=== PATIENT | male | born 2000 | race Caucasian/White ===

== ENCOUNTER 2021-06-19 01:03 | Emergency (ER) | payer OTHER, SELFPAY ==
[2021-06-19 01:07] VITALS: PULSE 111; RESP 18; TEMP 36; O2SAT 100
[2021-06-19 04:34] VITALS: BP 126/76; PULSE 95; RESP 18; O2SAT 98
--- NOTE | 2021-06-19 04:47 | ED.SKABFB ---
HPI - Skin/Abscess/Foreign Bdy General Chief complaint: Skin/Abscess/Foreign Body Stated complaint: wound check abd Time Seen by Provider: 06/19/21 04:40 Source: patient Mode of arrival: ambulatory Limitations: no limitations History of Present Illness HPI narrative: Patient is a 21-year-old male complaining of an abscess on his left lower abdominal wall started approximately 4 days ago. Patient states that he was seen at another hospital 2 days ago had an I&D done, and was prescribed antibiotics but patient claims that he lost the prescription. Patient states that he pulled the iodoform gauze yesterday as instructed. Patient denies any fever or chills. Patient states that he still having a discharge from the abscess site but denies any increased redness or swelling. Related Data Allergies Allergy/AdvReac Type Severity Reaction Status Date / Time No Known Allergies Allergy Mild Verified 06/19/21 01:09 Review of Systems Review of Systems: All systems reviewed & are unremarkable except as noted in HPI and below Constitutional: Constitutional: Reports as per HPI PMFSH Comments Past medical history: None Family history: None Social history: Positive for smoker, no EtOH or drug use Exam Const: General: no acute distress and alert Orientation/consciousness: patient oriented x3 HENMT: Head: normal to inspection Eyes: Conjunctivae: conjunctivae normal Neck: Neck: normal visual inspection Chest: Chest palpation & inspection: normal inspection of the chest Resp: Effort & Inspection: normal respiratory effort Skin: Other: Open wound on the left lower abdominal wall where it was incised, positive for mild purulent discharge, mild surrounding erythema Course Vital Signs Vital signs: Vital Signs Temperature 36.0 C L 06/19/21 01:07 Pulse Rate 111 H 06/19/21 01:07 Respiratory Rate 18 06/19/21 01:07 Pulse Oximetry 100 06/19/21 01:07 Temperature 36.0 C L 06/19/21 01:07 Pulse Rate 95 06/19/21 04:34 Respiratory Rate 18 06/19/21 04:34 Blood Pressure 126/76 06/19/21 04:34 Pulse Oximetry 98 06/19/21 04:34 Discharge Plan Discharge Clinical Impression: Abscess of skin or subcutaneous tissue Qualifiers: Site of cutaneous abscess: unspecified site Qualified Code(s): L02.91 - Cutaneous abscess, unspecified Patient Disposition: Home, Self-Care Condition: Improved Instructions: Antibiotic Form, Abscess (ED) Prescriptions: New sulfamethoxazole-trimethoprim [Bactrim DS] 800-160 mg tablet 1 tablet PO Q12H 7 Days Qty: 14 RF: 0 Follow-up/Referrals: PHYSICIAN,CALL CENTER TRAINER [Primary Care Provider] - 06/21/21 Víctor Orozco MD [Physician] - 06/21/21 Time of Disposition: 05:22
[2021-06-19] MEDS: DOXYCYCLINE HYCLATE 100 MG TABLET PO (05:10)
[2021-06-19 06:05] VITALS: BP 123/56; PULSE 98; RESP 18; O2SAT 99
== END 2021-06-19 06:07 | disposition home or self-care (01) ==
PROVIDERS: Emergency Provider Emergency Medicine
DX: L02.211 Cutaneous abscess of abdominal wall (principal)
CPT/HCPCS: 99283; A9270

== ENCOUNTER 2021-07-07 01:06 | Inpatient (IN) | payer OTHER, SELFPAY ==
[2021-07-07] VITALS (13 sets, daily range): BP systolic 114–128; BP diastolic 67–84; PULSE 79–109; RESP 12–22; TEMP 36.2–37.1; O2SAT 98–100; BMI 30.8
--- NOTE | ~2021-07-07 | XR_ITS ---
XR hand RT min 3V 07/07/2021 03:18 INDICATION: Abscess base of the right fifth metacarpal PROCEDURE: 3 views right hand COMPARISON: No prior studies for comparison. FINDINGS: Fracture, dislocation or subluxation is not identified. The soft tissues appear within norm al limits. No foreign bodies are identified. IMPRESSION: 1: NO ACUTE BONE OR JOINT ABNORMALITY IDENTIFIED. Reviewed, dictated and finalized at location A. RATIVE ENGRAVER
--- NOTE | ~2021-07-07 | XR_ITS ---
EXAMINATION: XR chest 1V portable INDICATION: Cough TECHNIQUE: Portable AP chest at 2214 hours COMPARISON: None available FINDINGS: There are minimal opacities of the left lung base. No pleural effusion or pneumothorax is i dentified. The cardiomediastinal silhouette is normal. IMPRESSION: 1. Minimal left basilar airspace opacity, consistent with atelectasis versus pneumonia. Reviewed, dictated and finalized at location F. CASHIER IMPRESSION: 1. Minimal left basilar airspace opacity, consistent with atelectasis versus pn eumonia.
[2021-07-07 01:56] LABS: Basophils Absolute Auto 0.1 K/mm3 (0.0-0.1); Basophils Percent Auto 0.5 % (0.2-1.2); Eosinophils Absolute Auto 0.2 K/mm3 (0-0.3); Eosinophils Percent Auto 1.4 % (0-4.4); Hematocrit 45.7 % (42.0-52.0); Hemoglobin 14.4 g/dL (14.0-18.0); Immature Granulocyte Absolute 0.04 K/mm3 (0.00-0.031); Immature Granulocyte Percent A 0.3 % (0-0.5); Lymphocytes Absolute Auto 2.33 K/mm3 (0.9-3.2); Lymphocytes Percent Auto 18.7 % (18.3-44.2); Mean Corpuscular HGB Conc 31.5 g/dl (32-36); Mean Corpuscular Hemoglobin 28.4 pg (26-34); Mean Corpuscular Volume 90.1 fl (80-100); Mean Platelet Volume 11.1 fl (7.4-10.4); Monocytes Absolute Auto 0.8 K/mm3 (0.1-0.6); Neutrophils Absolute Auto 9.1 K/mm3 (1.3-6.7); Neutrophils Percent Auto 73.1 % (45.5-73.1); Platelet Count Result 254 k/mm3 (150-375); Red Blood Count 5.07 M/mm3 (4.6-6.20); Red Cell Distribution Width 12.9 % (11.5-14.5); White Blood Count 12.4 K/mm3 (4.5-10.0)
[2021-07-07 02:09] LABS: Alanine Aminotransferase 14 U/L (4-50); Alkaline Phosphatase 57 U/L (38-126); Anion Gap 6 mmol/L (8-16); Aspartate Amino Transferase 16 U/L (17-59); Blood Urea Nitrogen 8 mg/dL (9-20); Calcium 8.8 mg/dL (8.4-10.2); Carbon Dioxide 30 mmol/L (22-30); Chloride 103 mmol/L (98-107); Estimated CRCL calculation 95 ml/min; Estimated Glomerular Filt Rate > 60; Glucose 78 mg/dL (65-110); Potassium 3.8 mmol/L (3.4-5.0); Sodium 139 mmol/L (137-145)
[2021-07-07 02:10] LABS: Lactic Acid Reflex 0.9 mmol/L (0.7-2.1)
[2021-07-07] MEDS: ONDANSETRON INJ 4 MG/2 ML VIAL IV PUSH (03:25)
[2021-07-07] MEDS: SODIUM CHLORIDE 0.9% IV 1,000 ML 999 ML IV CONT (03:25)
[2021-07-07] MEDS: MORPHINE SULFATE (*CRX) 4 MG/ML INJ IV PUSH ×4 (03:26→10:47)
--- NOTE | 2021-07-07 03:42 | ED.GENADULT ---
HPI - General Adult General Chief complaint: Skin/Abscess/Foreign Body Stated complaint: Abscess and severe edema to Right hand Time Seen by Provider: 07/07/21 02:59 History of Present Illness HPI narrative: Patient is a 21-year-old gentleman who presents the emergency department with chief complaint of right hand pain. Patient reports that he noticed a small abscess developing at the intersection of the following phalanx and metacarpal of the fifth digit several days ago the patient was seen three times at [facility] and was started on oral antibiotics. Patient states has been taking the antibiotics for some time and has had worsening pain and worsening swelling. Patient reports that there is redness streaking up his arm patient denies IV drug use patient denies trauma. Related Data Allergies Allergy/AdvReac Type Severity Reaction Status Date / Time No Known Allergies Allergy Mild Verified 06/19/21 01:09 Review of Systems Review of Systems: A 10 system review of systems was completed on the patient and is negative except for what is stated in the HPI. Nursing and ancillary documentation was reviewed. Exam Narrative: GENERAL: Well-appearing, well-nourished, and in no acute distress. HEAD: Normocephalic, atraumatic. EYES: PERRLA and EOMI. ENT: Nares clear, no rhinorrhea or epistaxis. Mucous membranes moist. NECK: Supple. CHEST: Clear to auscultation. No respiratory distress. HEART: Regular rate and rhythm. No murmur heard. Normal peripheral pulses. ABDOMEN: Soft, nontender, nondistended, normal active bowel sounds. EXTREMITIES: Normal range of motion. No edema. The right fifth digit is held in flexion there is pain with passive range of motion. SKIN: Warm, dry, no rash. NEURO: No focal deficits. Alert and oriented x3. PSYCH: Normal mood and affect. Course Course Emergency Course: Plain film x-ray of the right hand showed no evidence of radiopaque foreign body, no gas Vital Signs Vital signs: Vital Signs Temperature 36.9 C 07/07/21 01:14 Pulse Rate 109 H 07/07/21 01:14 Respiratory Rate 18 07/07/21 01:14 Blood Pressure 114/74 07/07/21 01:14 Pulse Oximetry 100 07/07/21 01:14 Temperature 36.9 C 07/07/21 01:14 Pulse Rate 109 H 07/07/21 01:14 Respiratory Rate 18 07/07/21 01:14 Blood Pressure 114/74 07/07/21 01:14 Pulse Oximetry 100 07/07/21 01:14 Medical Decision Making Vital Signs Vital Signs: Vital Signs Temperature 36.9 C 07/07/21 01:14 Pulse Rate 109 H 07/07/21 01:14 Respiratory Rate 18 07/07/21 01:14 Blood Pressure 114/74 07/07/21 01:14 Pulse Oximetry 100 07/07/21 01:14 Temperature 36.9 C 07/07/21 01:14 Pulse Rate 109 H 07/07/21 01:14 Respiratory Rate 18 07/07/21 01:14 Blood Pressure 114/74 07/07/21 01:14 Pulse Oximetry 100 07/07/21 01:14 Lab Data Result diagrams: 07/07/21 01:48 07/07/21 01:48 Labs: Lab Results 07/07/21 07/07/21 07/07/21 Range/Units 01:48 01:48 01:48 WBC 12.4 H (4.5-10.0) K/mm3 RBC 5.07 (4.6-6.20) M/mm3 Hgb 14.4 (14.0-18.0) g/dL Hct 45.7 (42.0-52.0) % MCV 90.1 (80-100) fl MCH 28.4 (26-34) pg MCHC 31.5 L (32-36) g/dl RDW 12.9 (11.5-14.5) % Plt Count 254 (150-375) k/mm3 MPV 11.1 H (7.4-10.4) fl Immature Gran % (Auto) 0.3 (0-0.5) % Neut % (Auto) 73.1 (45.5-73.1) % Lymph % (Auto) 18.7 (18.3-44.2) % Storey % (Auto) 6.0 (2.6-8.5) % Eos % (Auto) 1.4 (0-4.4) % Baso % (Auto) 0.5 (0.2-1.2) % Lymph # (Auto) 2.33 (0.9-3.2) K/mm3 Storey # (Auto) 0.8 H (0.1-0.6) K/mm3 Eos # (Auto) 0.2 (0-0.3) K/mm3 Baso # (Auto) 0.1 (0.0-0.1) K/mm3 Abs Immat Gran (auto) 0.04 H (0.00-0.031) K/mm3 Absolute Neuts (auto) 9.1 H (1.3-6.7) K/mm3 Absolute Nucleated RBC 0.0 (0.0-0.012) K/mm3 Nucleated RBC % 0.0 (0.0-0.2) % Sodium 139 (137-145) mmol/L Potassium 3.8 (3.4-5.0) mmol/L Chloride
[2021-07-07] MEDS: HYDROmorphone HCL INJ (*CRX) 1 MG/ML SYR IV PUSH (04:04)
[2021-07-07 04:41] LABS: CRP 6.5 mg/dL (<1.0)
--- NOTE | 2021-07-07 05:15 | ADMGEN ---
This patient, Elia Jacobs, was admitted to 3 Med Surg Room 301-01. Patient/family oriented to hospital policies and general routines including ID bracelet, bed and alarms, visiting hours, pain management, procedures, bathroom and other care routines, personal items, smoking policy, room service/diet, and visiting hours. Information on how to activate the Rapid Response Team has been discussed. Patient/Family are encouraged to report perceived risks to care and to ask questions if they do not understand what they are told or what they should do.
[2021-07-07] MEDS: SODIUM CHLORIDE 0.9% IV 1,000 ML 125 ML IV CONT ×2 (05:28→20:30)
--- NOTE | 2021-07-07 05:59 | PM.IMHP ---
H&P: HPI History of Present Illness Date/Time: 07/07/21 05:59 Chief Complaint: Right hand pain Narrative: This is a 21-year-old male transitioning/transgender likes to be called Aga and She as a pronoun. Presents to the emergency room with right hand base of the 5th finger abscess with flexion area of induration, redness and tenderness ,states that started 3 days ago, denies any fevers, rigors or chills, or nausea, or vomiting,diarrheal, abdominal pain, cough, sputum production, denies use of IV drugs. Patient received Zosyn and vanco in the emergency room. At the time of my visit patient was in distress due to unbearable pain that his rating at 10/10 in intensity. Preliminary workup was significant for x-ray of right hand with no subcutaneous gas, soft tissue swelling. C reactive protein was 6.5 WBC of 12,000. Review of Systems Review of Systems: Right hand swelling, pain, stiffness. Constitutional: Constitutional: Denies chills, Denies fatigue, Denies fever(s), Denies lethargy, Denies malaise and Denies night sweats Eyes: Eyes: Denies change in vision ENT: Denies dysphagia, Denies nasal congestion, Denies nasal discharge, Denies nasal obstruction and Denies odynophagia Cardiovascular: Cardiovascular: Denies claudication, Denies radiating jaw, neck or arm pain, Denies palpitations, Denies dyspnea on exertion and Denies orthopnea Respiratory: Respiratory: Denies cough Gastrointestinal: Gastrointestinal: Denies abdominal pain, Denies dyspepsia, Denies heartburn, Denies nausea and Denies vomiting Genitourinary: Genitourinary: Denies dysuria Musculoskeletal: Musculoskeletal: Reports arthralgias (Right hand 5th MPI), Reports joint swelling and Reports stiffness Neurologic: Denies focal weakness and Denies Sensory deficit (Neuro) Psychiatric: Psychiatric: Reports no additional psychiatric complaints and Reports as per HPI Endocrine: Endocrine: Denies cold intolerance, Denies heat intolerance and Denies palpitations Hematologic/Lymphatic: Hematologic/Lymphatic: Reports no additional hematologic/lymphatic complaints and Reports as per HPI Allergic/Immunologic: Allergic/Immunologic: Reports no additional allergic/immunologic complaints and Reports as per HPI Meds Home Medications and Allergies Home Medications Medication Instructions Recorded Confirmed Type sulfamethoxazole-trimethoprim 1 tablet PO Q12H 7 Days #14 tablet 12/22/21 Rx [Bactrim DS] Allergies Allergy/AdvReac Type Severity Reaction Status Date / Time No Known Allergies Allergy Mild Verified 06/19/21 01:09 Vital Signs Vital Signs - 24 hr 07/07/21 01:14 07/07/21 04:45 07/07/21 04:50 Temperature 98.4 F 98.7 F 98.8 F Pulse Rate 109 H 91 87 Respiratory Rate 18 17 22 H Blood Pressure 114/74 123/84 120/78 Pulse Oximetry 100 98 100 Exam Narrative: Laying in bed Const: General: cooperative, comfortable, no acute distress, well developed, alert, awake, in distress moderate (Pain), anxious and ill appearing (Well-appearing) Nutritional Appearance: average body habitus Orientation/consciousness: patient oriented x3 HENMT: Head: normal to inspection, normocephalic and atraumatic Ears: hearing grossly normal bilaterally General nose exam: Normal external nose present Face and sinus: normal facial exam Mouth: Yes Normal oral and palatal mucosa present Eyes: General: appearance normal, both eyes and all related structures Alignment and Position: alignment normal Sclera: sclerae normal Pupils: Equal, round and reactive pupils present EOM: EOMs intact bilaterally Neck: Neck: normal visual inspection, full ROM, no lymphadenopathy, supple and no JVD Thyroid: thyroid normal Lymphatic: no lymphadenopathy noted Resp: Effort & Inspection: normal respiratory effort, able to speak in complete sentences and no cough Auscultation: clear to auscultation bilaterally, no crackles, no rales, no rhonchi and no wheezes Cardio: Jugular venous distension:
[2021-07-07] MEDS: HYDROmorphone HCL INJ (*CRX) 1 MG/ML SYR 2 MG IV PUSH (06:00)
--- NOTE | 2021-07-07 06:52 | PC.NURSE ---
Pt denies having an emergency contact, educated on the importance of giving us a friend or family member to notify, pt keeps saying I do not have anyone .
[2021-07-07 08:15] LABS: Erythrocyte Sedimentation Rate 15 mm/hr (0-20)
--- NOTE | 2021-07-07 08:58 | PM.IMPN ---
Progress Note: A&P Assessment and Plan (1) Abscess of hand, right: Code(s): L02.511 - Cutaneous abscess of right hand Status: Acute Assessment and Plan: Admit to regular medical floor Zosyn plus vanc Cultures in progress 07/07/2021 incision and drainage to the right hand subcutaneous abscess by Dr. Bermeo. Regular diet Up at devin elevation, p.r.n. ice, and p.r.n. pain medication. Comfortable now after I/D. (2) Right arm cellulitis: Code(s): L03.113 - Cellulitis of right upper limb Status: Acute Assessment and Plan: Ice packs to the area patient denies any history of MRSA, any previous surgeries or wounds that will not heal, and denies any other infections at this time. During the I and D, tanner pus was evacuated. The pus was cultured. No necrotic skin. Packing applied. On Zosyn and vancomycin. Urinalysis is ordered and remains on collect this time. Nursing staff will try again with the patient. Ordered strict I's and O's. Blood cultures remain pending. CRP mild elevated 6.5, lactate and ESR normal. White blood count mildly elevated at 12.4. Subjective Date/time seen: 07/07/21 08:58 Elia was resting in bed on her back at the time of my exam. The OR nurses were preparing to take the patient down for an incision and drainage to the right hand subcutaneous abscess by Dr. Bermeo. There is evidence of pus and loculation noted at the 5th metatarsal on the right hand. But there is swelling noted to the 5th 4th and 3rd fingers and palm area the right hand. [facility] is in significant pain due to the swelling despite persistent elevation, p.r.n. ice, and p.r.n. pain medication. The patient denies any history of MRSA, any previous surgeries or wounds that will not heal, and denies any other infections at this time. During the I and D, tanner pus was evacuated. The pus was cultured. No necrotic skin. Packing applied. Nurse has reported that the patient is much more comfortable after this incision and drainage. Elia denies any blood or pain during urination or with bowel movements. She denies any chest pain or short of breath, any constipation or diarrhea at this time. On Zosyn and vancomycin. Urinalysis is ordered and remains on collect this time. Nursing staff will try again with the patient. Ordered strict I's and O's. Blood cultures remain pending. CRP mild elevated, lactate and ESR normal. White blood count mildly elevated at 12.4. Review of Systems Review of Systems: All systems reviewed & are unremarkable except as noted in HPI and below Constitutional: Constitutional: Reports as per HPI, Reports body ache(s) (hand/arm ache), Denies chills, Denies fatigue, Denies fever(s), Denies lethargy, Denies malaise and Denies night sweats Eyes: Eyes: Reports as per HPI and Denies change in vision ENT: Reports as per HPI, Reports Normal hearing present, Denies dysphagia, Denies nasal congestion, Denies nasal discharge, Denies nasal obstruction and Denies odynophagia Cardiovascular: Cardiovascular: Reports as per HPI, Denies chest pain, Denies pedal edema, Denies claudication, Denies leg edema, Denies lightheadedness, Denies radiating jaw, neck or arm pain, Denies palpitations, Denies dyspnea on exertion and Denies orthopnea Respiratory: Respiratory: Reports as per HPI, Denies chest congestion, Denies cough, Denies hemoptysis, Denies dyspnea, Denies dyspnea on exertion and Denies wheezing Gastrointestinal: Gastrointestinal: Reports as per HPI, Denies abdominal pain, Denies melena, Denies bloating, Denies hematochezia, Denies constipation, Denies dysphagia, Denies dyspepsia, Denies heartburn, Denies diarrhea, Denies nausea, Denies odynophagia, Denies vomiting and Denies hematemesis Genitourinary: Genitourinary: Reports as per HPI and Denies dysuria Musculoskeletal: Musculoskeletal: Reports as per HPI, Reports arthralgias (Right hand 5th MPI), Reports joint swelling (3rd,4th, 5th, metatarsals on right hand, palm of
[2021-07-07] MEDS: KETOROLAC 30 MG/ML VIAL (*BKC) IV PUSH (09:42)
[2021-07-07] MEDS: HYDROcodone/acetaminophen (*CRX) 10-325 MG TABLET 1 TAB PO ×2 (09:51→23:58)
--- NOTE | 2021-07-07 10:05 | WPDCN ---
Assessment and Plan Assessment and plan (1) Abscess of hand, right: Code(s): L02.511 - Cutaneous abscess of right hand Status: Acute Assessment and Plan: Presumed abscess of the right ulnar palm based upon pain, swelling, elevated WBC and C-reactive protein. Plan is to I&D under general anesthesia. (2) Right arm cellulitis: Code(s): L03.113 - Cellulitis of right upper limb Status: Acute Assessment and Plan: Soft tissue infection with lymphangitis. Should improve with I&D and IV antibiotics. HPI Data of Consult Date/Time: 07/07/21 10:05 Requesting Physician: Noni Chan NP Primary Care Provider: DRY ROLLER PHYSICIAN Consult Narrative Narrative: Elia Jacobs is a 21 year old male transitioning to female and preferring to be referred to as She. She comes with a 3 day history of painful infection of the right hand. The site most affected is the palmar metacarpophalangeal joint of the right small finger. There is edema of the hand and lymphangitis of the volar forearm. This patient is in some distress due to pain that is rated 10/10. She was admitted around 0400 and has been given Vancomycin and Zosyn IV The etiology is uncertain. There is no history of trauma. She has been to the ER at [facility] apparently 3 times in the past 3 days for this complaint. Treatment received there is not clear, but was not definitive. I examined the patient at bedside, nurses were present. It appears that there is cellulitis and probably an abscess over the head of the 5th metacarpal. That area is chandrika, swollen and the skin has been superficially traumatized for an unknown reason. X-ray at [facility] was normal. The nail and nail bed are normal. Skin color of the finger in general is normal. The finger is flexed and tender to passive extension. There is minimal tenderness to lateral compression of the finger. There is minimal tenderness in the distal forearm and palm. There is no ulceration, drainage or necrotic tissue. There is a small 5 mm wound on the left index finger. The patient does not know how that injury occurred. That site is not infected. The patient has no family in the area. This patient has no primary doctor at this time. She is not employed. The patient says she has been incarcerated between 2013 - 2016. She is worried because she has no knowledge of how to negotiate the [employer]. I have made her aware that the way we can best take care of her is to take her to surgery and explore this palm under general anesthesia. She is aware that we expect to find pus. It is likely that the wound will be left open after surgery and she will need several days of wound care and antibiotics at the hospital. The patient was anxious and distressed and I did not go into detail regarding possible complications of this type of surgery such as tendon injury or nerve injury or loss of the finger. She agrees to go to surgery today and have this site operated for treatment of a severe infection. [facility] Social History Social History Smoking packs per day: 1 Smoking cigarettes per day: 20.0 Years smoked: 4 Smoking pack-years: 4.00 Smoking status: Current every day smoker Tobacco type: cigarettes Alcohol intake: never Substance use: current Substance use type: marijuana Gender identity (if verbalized by the patient): Transgender Female Spiritual care concerns: No Meds Home Medications and Allergies Home Medications Medication Instructions Recorded Confirmed Type sulfamethoxazole-trimethoprim 1 tablet PO Q12H 7 Days #14 tablet 06/19/21 07/07/21 Rx [Bactrim DS] Allergies Allergy/AdvReac Type Severity Reaction Status Date / Time No Known Allergies Allergy Mild Verified 06/19/21 01:09 Vital Signs Vital Signs - 24 hr 07/07/21 01:14 07/07/21 04:45 07/07/21 04:50 Temperature 98.4 F
--- NOTE | 2021-07-07 11:28 | WPDANESEPP ---
Anes - Eval Pre Procedure Procedure: Operation Date: 07/07/21 13:30 Proposed Procedures p I&D Debride Upper Extremity Right Hand - Rey Bermeo MD Date/Time: 07/07/21 11:28 Surgeon: Elvie Preop Diagnosis: Abcess right hand Pre Op Diagnosis: Right Hand Cellulitis/Abscess Patient Data Age: 21 Gender: M Height: 1.83 m Weight: 103 kg Last Vital Signs Temp 98.8 F 07/07/21 04:50 Pulse 87 07/07/21 04:50 Resp 22 H 07/07/21 04:50 BP 120/78 07/07/21 04:50 Pulse Ox 100 07/07/21 04:50 Allergies Allergy/AdvReac Type Severity Reaction Status Date / Time No Known Allergies Allergy Mild Verified 06/19/21 01:09 Home Medications Medication Instructions Recorded Confirmed Type sulfamethoxazole-trimethoprim 1 tablet PO Q12H 7 Days #14 tablet 06/19/21 07/07/21 Rx [Bactrim DS] Laboratory Tests 07/07/21 07/07/21 07/07/21 01:47 01:48 01:48 WBC 12.4 K/mm3 H K/mm3 (4.5-10.0) RBC 5.07 M/mm3 M/mm3 (4.6-6.20) Hgb 14.4 g/dL g/dL (14.0-18.0) Hct 45.7 % % (42.0-52.0) MCV 90.1 fl fl (80-100) MCH 28.4 pg pg (26-34) MCHC 31.5 g/dl L g/dl (32-36) RDW 12.9 % % (11.5-14.5) Plt Count 254 k/mm3 k/mm3 (150-375) MPV 11.1 fl H fl (7.4-10.4) Immature Gran % (Auto) 0.3 % % (0-0.5) Neut % (Auto) 73.1 % % (45.5-73.1) Lymph % (Auto) 18.7 % % (18.3-44.2) Beckham % (Auto) 6.0 % % (2.6-8.5) Eos % (Auto) 1.4 % % (0-4.4) Baso % (Auto) 0.5 % % (0.2-1.2) Lymph # (Auto) 2.33 K/mm3 K/mm3 (0.9-3.2) Beckham # (Auto) 0.8 K/mm3 H K/mm3 (0.1-0.6) Eos # (Auto) 0.2 K/mm3 K/mm3 (0-0.3) Baso # (Auto) 0.1 K/mm3 K/mm3 (0.0-0.1) Abs Immat Gran (auto) 0.04 K/mm3 H K/mm3 (0.00-0.031) Absolute Neuts (auto) 9.1 K/mm3 H K/mm3 (1.3-6.7) Absolute Nucleated RBC 0.0 K/mm3 K/mm3 (0.0-0.012) Nucleated RBC % 0.0 % % (0.0-0.2) ESR Sodium 139 mmol/L mmol/L (137-145) Potassium 3.8 mmol/L mmol/L (3.4-5.0) Chloride 103 mmol/L mmol/L (98-107) Carbon Dioxide 30 mmol/L mmol/L (22-30) Anion Gap 6 mmol/L L mmol/L (8-16) BUN 8 mg/dL L mg/dL (9-20) Creatinine 1.20 mg/dL mg/dL (0.7-1.3) Estim Creat Clear Calc 95 ml/min ml/min Estimated GFR > 60 (59 - ) Glucose 78 mg/dL mg/dL (65-110) Lactic Acid Calcium 8.8 mg/dL mg/dL (8.4-10.2) Total Bilirubin 1.0 mg/dL mg/dL (0.2-1.3) AST 16 U/L L U/L (17-59) ALT 14 U/L U/L (4-50) Alkaline Phosphatase 57 U/L U/L (38-126) C-Reactive Protein 6.5 mg/dL H mg/dL (<1.0) Total Protein 7.0 g/dL g/dL (6.3-8.2) Albumin 4.0 g/dL g/dL (3.5-5.1) 07/07/21 07/07/21 01:48 07:22 WBC RBC Hgb Hct MCV MCH MCHC RDW Plt Count MPV Immature Gran % (Auto) Neut % (Auto) Lymph % (Auto) Beckham % (Auto) Eos % (Auto) Baso % (Auto) Lymph # (Auto) Beckham # (Auto) Eos # (Auto) Baso # (Auto) Abs Immat Gran (auto) Absolute Neuts (auto) Absolute Nucleated RBC Nucleated RBC % ESR 15 mm/hr mm/hr (0-20) Sodium Potassium Chloride Carbon Dioxide Anion Gap BUN Creatinine Estim Creat Clear Calc Estimated GFR Glucose Lactic Acid 0.9 mmol/L mmol/L (0.7-2.1) Calcium Total Bilirubin AST ALT Alkaline Phosphatase C-Reactive Protein Total Protein Albumin
--- NOTE | 2021-07-07 12:30 | PC.NURSE ---
to OR per bed
--- NOTE | 2021-07-07 12:55 | WPDANESEPPF ---
Anes - Initial Pre Proc Eval Procedure: Operation Date: 07/07/21 13:30 Proposed Procedures p I&D Debride Upper Extremity Right Hand - Rey Bermeo MD Date/Time: 07/07/21 12:55 Surgeon: Noni Chan NP Pre Op Diagnosis: Right Hand Cellulitis/Abscess Patient Data Age: 21 Gender: M Height: 1.83 m Weight: 103 kg Last Vital Signs Temp 37.1 C 07/07/21 04:50 Pulse 87 07/07/21 04:50 Resp 22 H 07/07/21 04:50 BP 120/78 07/07/21 04:50 Pulse Ox 100 07/07/21 04:50 Allergies Allergy/AdvReac Type Severity Reaction Status Date / Time No Known Allergies Allergy Mild Verified 06/19/21 01:09 Home Medications Medication Instructions Recorded Confirmed Type sulfamethoxazole-trimethoprim 1 tablet PO Q12H 7 Days #14 tablet 06/19/21 07/07/21 Rx [Bactrim DS] Laboratory Tests 07/07/21 07/07/21 07/07/21 01:47 01:48 01:48 WBC 12.4 K/mm3 H K/mm3 (4.5-10.0) RBC 5.07 M/mm3 M/mm3 (4.6-6.20) Hgb 14.4 g/dL g/dL (14.0-18.0) Hct 45.7 % % (42.0-52.0) MCV 90.1 fl fl (80-100) MCH 28.4 pg pg (26-34) MCHC 31.5 g/dl L g/dl (32-36) RDW 12.9 % % (11.5-14.5) Plt Count 254 k/mm3 k/mm3 (150-375) MPV 11.1 fl H fl (7.4-10.4) Immature Gran % (Auto) 0.3 % % (0-0.5) Neut % (Auto) 73.1 % % (45.5-73.1) Lymph % (Auto) 18.7 % % (18.3-44.2) Banner % (Auto) 6.0 % % (2.6-8.5) Eos % (Auto) 1.4 % % (0-4.4) Baso % (Auto) 0.5 % % (0.2-1.2) Lymph # (Auto) 2.33 K/mm3 K/mm3 (0.9-3.2) Banner # (Auto) 0.8 K/mm3 H K/mm3 (0.1-0.6) Eos # (Auto) 0.2 K/mm3 K/mm3 (0-0.3) Baso # (Auto) 0.1 K/mm3 K/mm3 (0.0-0.1) Abs Immat Gran (auto) 0.04 K/mm3 H K/mm3 (0.00-0.031) Absolute Neuts (auto) 9.1 K/mm3 H K/mm3 (1.3-6.7) Absolute Nucleated RBC 0.0 K/mm3 K/mm3 (0.0-0.012) Nucleated RBC % 0.0 % % (0.0-0.2) ESR Sodium 139 mmol/L mmol/L (137-145) Potassium 3.8 mmol/L mmol/L (3.4-5.0) Chloride 103 mmol/L mmol/L (98-107) Carbon Dioxide 30 mmol/L mmol/L (22-30) Anion Gap 6 mmol/L L mmol/L (8-16) BUN 8 mg/dL L mg/dL (9-20) Creatinine 1.20 mg/dL mg/dL (0.7-1.3) Estim Creat Clear Calc 95 ml/min ml/min Estimated GFR > 60 (59 - ) Glucose 78 mg/dL mg/dL (65-110) Lactic Acid Calcium 8.8 mg/dL mg/dL (8.4-10.2) Total Bilirubin 1.0 mg/dL mg/dL (0.2-1.3) AST 16 U/L L U/L (17-59) ALT 14 U/L U/L (4-50) Alkaline Phosphatase 57 U/L U/L (38-126) C-Reactive Protein 6.5 mg/dL H mg/dL (<1.0) Total Protein 7.0 g/dL g/dL (6.3-8.2) Albumin 4.0 g/dL g/dL (3.5-5.1) 07/07/21 07/07/21 01:48 07:22 WBC RBC Hgb Hct MCV MCH MCHC RDW Plt Count MPV Immature Gran % (Auto) Neut % (Auto) Lymph % (Auto) Banner % (Auto) Eos % (Auto) Baso % (Auto) Lymph # (Auto) Banner # (Auto) Eos # (Auto) Baso # (Auto) Abs Immat Gran (auto) Absolute Neuts (auto) Absolute Nucleated RBC Nucleated RBC % ESR 15 mm/hr mm/hr (0-20) Sodium Potassium Chloride Carbon Dioxide Anion Gap BUN Creatinine Estim Creat Clear Calc Estimated GFR Glucose Lactic Acid 0.9 mmol/L mmol/L (0.7-2.1) Calcium Total Bilirubin AST ALT Alkaline Phosphatase C-Reactive Protein Total Protein Albumin Patient h
[2021-07-07] MEDS: LACTATED RINGERS 1,000 ML 30 ML IV CONT (13:50)
[2021-07-07] MEDS: LIDO 1%/EPINEPHRINE/PF 1:200,000 30 ML VIAL INFILTRATE (14:39)
--- NOTE | 2021-07-07 14:58 | P.OP_ITS ---
Procedure Note - Detailed Date of Procedure 07/07/21 Pre-op Diagnosis Right Hand Cellulitis/Abscess Post-op Diagnosis same Procedure Performed I&D of subcutaneous abscess of the right hand Surgeon Rey Bermeo MD Electric Meter Repairer Nessa Sherwood Anesthesia general Indications Right palmar abscess Findings Subcutaneous abscess Description of Procedure The inflamed site was marked on the patient's hand in the holding area. She was taken to the operating room and placed supine on the operating table. A time- out was held and confirmed. She was given general anesthesia. Nasogastric tube was placed to empty the gastric contents which were in the range of 600 milliliter. The extremity was prepped and draped in usual fashion. The site was infiltrated proximally with 1% lidocaine with epinephrine. A diagonal incision was made across the swollen fluctuant mass and tanner pus was evacuated. The abscess continued radially over the ring finger flexor tendon sheath. It was also extended ulnar word to the ulnar margin of the hand. It extended proximally only a cm and a half. This area was unroofed with a zigzag incision running transversely. The pus was cultured. The wound was irrigated with saline and bacitracin saline about 2 L. this appeared to clear all of the pus. There was very little phlegmonous tissue. There is no necrotic skin. Neurovascular bundles were identified. The tendon sheath did not appear to have been violated. Two 3 cm strips of half-inch iodoform gauze were laid into the wound. The wound was dressed with a bulky bandage. The tourniquet was released. After observing for hemostasis a gauze wrap without compression was applied. Patient's transported to the recovery room stable condition Estimated Blood Loss 3 Drains No Packing Yes Pathology yes Complications No immediate complications Condition stable Disposition PACU
--- NOTE | 2021-07-07 15:10 | SUR.PHASEI ---
With patient's permission I cut off 2 rings and multiple bracelets before surgery. All these bagged and will return to room with patient.
[2021-07-08 00:25] LABS: Add Urine Microscopic? NO; Appearance Urine Clear (Clear); Bilirubin Urine Negative (Negative); Blood Urine Negative (Negative); Color Urine Yellow (Yellow); Glucose Urine UA Negative (Negative); Ketones Urine Negative (Negative); Leukocyte Esterase Ur Negative LEU/UL (Negative); Nitrate Urine Negative (Negative); Protein Urine Negative (Negative); Specific Grav Ur 1.014 (1.001-1.035); Urobilinogen Urine Negative mg/dL (<2.0)
[2021-07-08 06:00] VITALS: BP 100/57; PULSE 87; RESP 18; TEMP 36.3; O2SAT 99
[2021-07-08] MEDS: KETOROLAC 30 MG/ML VIAL (*BKC) IV PUSH ×3 (06:55→21:50)
[2021-07-08] MEDS: SODIUM CHLORIDE 0.9% IV 1,000 ML 125 ML IV CONT (09:54)
--- NOTE | 2021-07-08 11:30 | PM.IMPN ---
Progress Note: A&P Assessment and Plan (1) Abscess of hand, right: Code(s): L02.511 - Cutaneous abscess of right hand Status: Acute Assessment and Plan: Admit to regular medical floor Zosyn plus vanc day 2 Blood culture NGTD Wound culture gram positive cocci in clusters 07/07/2021 incision and drainage to the right hand subcutaneous abscess by Dr. Bermeo. Regular diet Up at devin elevation, p.r.n. ice, and p.r.n. pain medication. (2) Right arm cellulitis: Code(s): L03.113 - Cellulitis of right upper limb Status: Acute Assessment and Plan: Ice packs to the area patient denies any history of MRSA, any previous surgeries or wounds that will not heal, and denies any other infections at this time. During the I and D, tanner pus was evacuated. The pus was cultured. No necrotic skin. Packing applied. On Zosyn and vancomycin. Urinalysis is ordered and remains on collect this time. Nursing staff will try again with the patient. Ordered strict I's and O's. Blood cultures NGTD CRP mild elevated 6.5, lactate and ESR normal. White blood count mildly elevated at 12.4 New labs in the am Time Spent With Patient Time with patient: 25 - 35 minutes Subjective Date/time seen: 07/08/21 1130 Interval history: Date/Time: 07/07/21 05:59 Narrative: This is a 21-year-old male transitioning/transgender likes to be called Aga and She as a pronoun. Presents to the emergency room with right hand base of the 5th finger abscess with flexion area of induration, redness and tenderness ,states that started 3 days ago, denies any fevers, rigors or chills, or nausea, or vomiting,diarrheal, abdominal pain, cough, sputum production, denies use of IV drugs. Patient received Zosyn and vanco in the emergency room. At the time of my visit patient was in distress due to unbearable pain that his rating at 10/10 in intensity. Preliminary workup was significant for x-ray of right hand with no subcutaneous gas, soft tissue swelling. C reactive protein was 6.5 WBC of 12,000. Date/time seen: 07/07/21 08:58 Elia was resting in bed on her back at the time of my exam. The OR nurses were preparing to take the patient down for an incision and drainage to the right hand subcutaneous abscess by Dr. Bermeo. There is evidence of pus and loculation noted at the 5th metatarsal on the right hand. But there is swelling noted to the 5th 4th and 3rd fingers and palm area the right hand. Patricki is in significant pain due to the swelling despite persistent elevation, p.r.n. ice, and p.r.n. pain medication. The patient denies any history of MRSA, any previous surgeries or wounds that will not heal, and denies any other infections at this time. During the I and D, tanner pus was evacuated. The pus was cultured. No necrotic skin. Packing applied. Nurse has reported that the patient is much more comfortable after this incision and drainage. Elia denies any blood or pain during urination or with bowel movements. She denies any chest pain or short of breath, any constipation or diarrhea at this time. On Zosyn and vancomycin. Urinalysis is ordered and remains on collect this time. Nursing staff will try again with the patient. Ordered strict I's and O's. Blood cultures remain pending. CRP mild elevated, lactate and ESR normal. White blood count mildly elevated at 12.4. Date/Time 07/08/21 1130 Patient is very tired today. S/he stated that they are not a morning person. Breakfast was still sitting on the bedside table, and she stated that she would get to it later. She then held her hand up and stated that her hand hurt. Pain medication is working. Dressing did have a significant amount of drainage on it. She denies chest pain, shortness of breath, nausea, vomiting, diarrhea, constipation, abdominal pain, or urinary difficulties. Review of Systems Review of Systems: All systems reviewed & are unremarkable except as noted in HPI and belo
[2021-07-08 14:00] VITALS: BP 127/63; PULSE 93; RESP 16; TEMP 36.8; O2SAT 100
[2021-07-08 14:24] LABS: Hematocrit 39.8 % (42.0-52.0); Hemoglobin 12.8 g/dL (14.0-18.0); Mean Corpuscular HGB Conc 32.2 g/dl (32-36); Mean Corpuscular Hemoglobin 27.7 pg (26-34); Mean Corpuscular Volume 86.1 fl (80-100); Mean Platelet Volume 11.8 fl (7.4-10.4); Platelet Count Result 231 k/mm3 (150-375); Red Blood Count 4.62 M/mm3 (4.6-6.20); Red Cell Distribution Width 12.6 % (11.5-14.5)
[2021-07-08 15:45] LABS: Vancomycin Trough 6.1 ug/mL (10.0-20.0)
[2021-07-08 16:01] LABS: Alanine Aminotransferase 10 U/L (4-50); Albumin Level 3.1 g/dL (3.5-5.1); Alkaline Phosphatase 55 U/L (38-126); Anion Gap 10 mmol/L (8-16); Aspartate Amino Transferase 15 U/L (17-59); Bilirubin,Total 0.7 mg/dL (0.2-1.3); Blood Urea Nitrogen 7 mg/dL (9-20); Calcium 8.3 mg/dL (8.4-10.2); Carbon Dioxide 24 mmol/L (22-30); Chloride 104 mmol/L (98-107); Estimated CRCL calculation 116 ml/min; Estimated Glomerular Filt Rate > 60; Glucose 80 mg/dL (65-110); Potassium 4.2 mmol/L (3.4-5.0); Sodium 138 mmol/L (137-145)
[2021-07-08 21:09] VITALS: BP 123/66; PULSE 94; RESP 14; TEMP 36.2; O2SAT 99
[2021-07-08] MEDS: ZOLPIDEM TARTRATE (*CRX) 5 MG TABLET PO (22:34)
--- NOTE | 2021-07-09 03:45 | PC.NURSE ---
Pt refusing to let Nurse insert new IV, pt states I'm not doing that until I wake up in the morning, If I wake up now, I wont be able to fall back into good sleep . This RN educated her on the importance of keeping her antibiotics on schedule, pt understands but still refuses at this time.
[2021-07-09 03:58] VITALS: BP 113/61; PULSE 77; RESP 14; TEMP 36.6; O2SAT 98
[2021-07-09 08:27] LABS: Hematocrit 43.3 % (42.0-52.0); Hemoglobin 14.1 g/dL (14.0-18.0); Mean Corpuscular HGB Conc 32.6 g/dl (32-36); Mean Corpuscular Hemoglobin 28.3 pg (26-34); Mean Corpuscular Volume 86.9 fl (80-100); Mean Platelet Volume 10.8 fl (7.4-10.4); Platelet Count Result 245 k/mm3 (150-375); Red Blood Count 4.98 M/mm3 (4.6-6.20); Red Cell Distribution Width 12.7 % (11.5-14.5); White Blood Count 8.8 K/mm3 (4.5-10.0)
[2021-07-09 08:39] LABS: Alanine Aminotransferase 12 U/L (4-50); Albumin Level 3.7 g/dL (3.5-5.1); Alkaline Phosphatase 52 U/L (38-126); Anion Gap 8 mmol/L (8-16); Aspartate Amino Transferase 15 U/L (17-59); Bilirubin,Total 0.5 mg/dL (0.2-1.3); Blood Urea Nitrogen 4 mg/dL (9-20); Calcium 8.8 mg/dL (8.4-10.2); Carbon Dioxide 26 mmol/L (22-30); Chloride 105 mmol/L (98-107); Estimated CRCL calculation 177 ml/min; Estimated Glomerular Filt Rate > 60; Glucose 90 mg/dL (65-110); Potassium 3.8 mmol/L (3.4-5.0); Sodium 139 mmol/L (137-145)
[2021-07-09] MEDS: HYDROcodone/acetaminophen (*CRX) 10-325 MG TABLET 1 TAB PO ×2 (09:38→16:28)
--- NOTE | 2021-07-09 10:00 | PM.IMPN ---
Progress Note: A&P Assessment and Plan (1) Abscess of hand, right: Code(s): L02.511 - Cutaneous abscess of right hand Status: Acute Assessment and Plan: Admit to regular medical floor Zosyn plus vanc day 3 Blood culture NGTD Wound culture gram positive cocci in clusters 07/07/2021 incision and drainage to the right hand subcutaneous abscess by Dr. Bermeo. Regular diet Up at devin elevation, p.r.n. ice, and p.r.n. pain medication. (2) Right arm cellulitis: Code(s): L03.113 - Cellulitis of right upper limb Status: Acute Assessment and Plan: Ice packs to the area patient denies any history of MRSA, any previous surgeries or wounds that will not heal, and denies any other infections at this time. During the I and D, tanner pus was evacuated. The pus was cultured. No necrotic skin. Packing applied. On Zosyn and vancomycin Day 3 Urinalysis is ordered and remains on collect this time. Nursing staff will try again with the patient. Ordered strict I's and O's. Blood cultures NGTD CRP mild elevated 6.5, lactate and ESR normal. White blood count is 8.8 New labs in the am Time Spent With Patient Time with patient: Greater than 35 minutes Subjective Date/time seen: 07/09/21 1000 Interval history: Date/Time: 07/07/21 05:59 Narrative: This is a 21-year-old male transitioning/transgender likes to be called Aga and She as a pronoun. Presents to the emergency room with right hand base of the 5th finger abscess with flexion area of induration, redness and tenderness ,states that started 3 days ago, denies any fevers, rigors or chills, or nausea, or vomiting,diarrheal, abdominal pain, cough, sputum production, denies use of IV drugs. Patient received Zosyn and vanco in the emergency room. At the time of my visit patient was in distress due to unbearable pain that his rating at 10/10 in intensity. Preliminary workup was significant for x-ray of right hand with no subcutaneous gas, soft tissue swelling. C reactive protein was 6.5 WBC of 12,000. Date/time seen: 07/07/21 08:58 Elia was resting in bed on her back at the time of my exam. The OR nurses were preparing to take the patient down for an incision and drainage to the right hand subcutaneous abscess by Dr. Bermeo. There is evidence of pus and loculation noted at the 5th metatarsal on the right hand. But there is swelling noted to the 5th 4th and 3rd fingers and palm area the right hand. Patricki is in significant pain due to the swelling despite persistent elevation, p.r.n. ice, and p.r.n. pain medication. The patient denies any history of MRSA, any previous surgeries or wounds that will not heal, and denies any other infections at this time. During the I and D, tanner pus was evacuated. The pus was cultured. No necrotic skin. Packing applied. Nurse has reported that the patient is much more comfortable after this incision and drainage. Elia denies any blood or pain during urination or with bowel movements. She denies any chest pain or short of breath, any constipation or diarrhea at this time. On Zosyn and vancomycin. Urinalysis is ordered and remains on collect this time. Nursing staff will try again with the patient. Ordered strict I's and O's. Blood cultures remain pending. CRP mild elevated, lactate and ESR normal. White blood count mildly elevated at 12.4. Date/Time 07/08/21 1130 Patient is very tired today. S/he stated that they are not a morning person. Breakfast was still sitting on the bedside table, and she stated that she would get to it later. She then held her hand up and stated that her hand hurt. Pain medication is working. Dressing did have a significant amount of drainage on it. She denies chest pain, shortness of breath, nausea, vomiting, diarrhea, constipation, abdominal pain, or urinary difficulties. Date/Time 07/09/21 1000 Patient is laying in bed, and seems to be a bit frustrated. She stated th
--- NOTE | 2021-07-09 10:18 | WPDPN ---
Progress Note: A&P Assessment and Plan (1) Abscess of hand, right: Code(s): L02.511 - Cutaneous abscess of right hand Status: Acute Assessment and Plan: Marked improvement after I and D. May need additional washout. The patient does not appear to be ready to rinse this out in the shower by herself yet. Continue IV antibiotics and wound dressing by (2) Right arm cellulitis: Code(s): L03.113 - Cellulitis of right upper limb Status: Acute Assessment and Plan: Marked improvement after I and D and IV antibiotics. Additional Plan Continue same care. Check on cultures. Possible secondary washout in the operating room Time Spent With Patient Time with patient: less than 15 minutes Subjective Date/time seen: 07/08/21 1800 Interval history: Postop day 1 arm after I&D of a subcutaneous abscess of the right ulnar hand. The patient appeared much comfortable and stated that her hand was much more comfortable. The dressing was removed. There was minimal dried blood no fresh blood. The wick was removed. There appeared some creamy exudate at the bottom of the wound. I was able to compress most of this out without undue pain on the part of the patient. The color of the tissue was somewhat dark but appeared viable. There is no necrotic skin. There is no lymphangitis and little or no erythema. The wound was redressed with some Xeroform gauze and Kerlix. Objective Data Vital Signs Vital Signs: Vital Signs - 24 hr 07/08/21 14:00 07/08/21 21:09 07/09/21 03:58 Temperature 98.2 F 97.1 F L 97.8 F Pulse Rate 93 94 77 Respiratory Rate 16 14 14 Blood Pressure 127/63 123/66 113/61 Pulse Oximetry 100 99 98 Intake/Output Intake/Output: Intake & Output 07/06/21 07/07/21 07/08/21 07/09/21 23:59 23:59 23:59 23:59 Intake Total 3850 4290 470 Output Total 1000 200 Balance 2850 4090 470 Meds/Results Medications: Active Medications Generic Name Dose Route Start Last Admin Trade Name Freq PRN Reason Stop Dose Admin Hydrocodone Bitart/Acetaminophen 1 tab 07/07/21 09:22 Hydrocodone/Acetaminophen (*Crx) 5-325 Mg Tablet PO Q4H PRN Pain Rated 1-3 Hydrocodone Bitart/Acetaminophen 1 tab 07/07/21 09:22 07/09/21 09:38 Hydrocodone/Acetaminophen (*Crx) 10-325 Mg Tablet PO 1 tab Q4H PRN Administration Pain Rated 4-6 Albuterol 2 puff 07/08/21 22:32 Albuterol Sulfate (*Sp) Aerosol 1 Puff INHALATION Q6HRT PRN Shortness Of Breath Piperacillin/Tazobactam/Dextrose 3.375 gm in 50 mls @ 100 mls/hr 07/07/21 09:00 07/09/21 10:09 Zosyn 3.375 Gm/D5w 50ml Pm IVPB Infused Q6H JENNI Infusion Vancomycin HCl 1,750 mg in 500 mls @ 250 mls/hr 07/08/21 16:00 07/08/21 18:24 Vancomycin 1,750 Mg/D5w 500 Ml IVPB Infused Q12H JENNI Infusion Ketorolac Tromethamine 30 mg 07/07/21 09:21 07/08/21 21:50 Ketorolac 30 Mg/Ml Vial (*Bkc) IV PUSH 30 mg Q6H PRN Administration BREAKTHROUGH PAIN Morphine Sulfate 4 mg 07/07/21 04:09 07/07/21 10:47 Morphine Sulfate (*Crx) 4 Mg/Ml Inj IV PUSH 4 mg Q2H PRN Administration Pain Rated 7-10 Ondansetron HCl 4 mg 07/07/21 04:09 Ondansetron Inj 4 Mg/2 Ml Vial IV PUSH Q4H PRN Nausea Phenol 1 spray 07/08/21 22:05 Phenol/Sod Pheno [place] Pina (*Bkc) MUCOUS MEM PRN PRN Sore Throat Zolpidem Tartrate 5 mg 07/08/21 22:05 07/08/21 22:34 Zolpidem Tartrate (*Crx) 5 Mg Tablet PO 5 mg HS PRN Administration Insomnia Radiology Results: ITS Impressions Hand X-Ray 07/07/21 08:38 IMPRESSION: 1: NO ACUTE BONE OR JOINT ABNORMALITY IDENTIFIED. Chest X-Ray 07/08/21 22:43 IMPRESSION: 1. Minimal left basilar airspace opacity, consistent with atelectasis versus pneumonia. Labs Labs: Laboratory Results - last 24 hr 07/08/21 07/08/21 07/08/21 13:21 15:05 15:05 WBC 8.0 RBC 4.62 Hgb 12.8 L Hct 39.8 L MC
[2021-07-09 14:00] VITALS: BP 105/58; PULSE 88; RESP 18; TEMP 36.1; O2SAT 100
--- NOTE | 2021-07-09 19:39 | WPDPN ---
Progress Note: A&P Assessment and Plan (1) Abscess of hand, right: Code(s): L02.511 - Cutaneous abscess of right hand Status: Acute Assessment and Plan: Markedly improved. I spoke with nurse. Will allow Aga to shower. She says that she would be able to irrigate the wound in the shower. Redressing by RN. Will eval tomorrow regarding any need to revisit the OR. Possibly home tomorrow or . Pending organism sensitivity (2) Right arm cellulitis: Code(s): L03.113 - Cellulitis of right upper limb Status: Acute Assessment and Plan: Resolved. Time Spent With Patient Time with patient: 15 - 25 minutes Subjective Date/time seen: 07/09/21 19:39 Pt in no distress this evening. Participated in the wound dressing process. WBC around 8. Wound Cx-Staph a. Wound examined at bedside. No erythema. Almost no pain to exam inside the wound margins. No pus expressible. Full digital ROM. Objective Data Vital Signs Vital Signs: Vital Signs - 24 hr 07/08/21 21:09 07/09/21 03:58 07/09/21 14:00 Temperature 97.1 F L 97.8 F 97 F L Pulse Rate 94 77 88 Respiratory Rate 14 14 18 Blood Pressure 123/66 113/61 105/58 L Pulse Oximetry 99 98 100 Intake/Output Intake/Output: Intake & Output 07/06/21 07/07/21 07/08/21 07/09/21 23:59 23:59 23:59 23:59 Intake Total 3850 4290 2240 Output Total 1000 200 Balance 2850 4090 2240 Meds/Results Medications: Active Medications Generic Name Dose Route Start Last Admin Trade Name Freq PRN Reason Stop Dose Admin Hydrocodone Bitart/Acetaminophen 1 tab 07/07/21 09:22 Hydrocodone/Acetaminophen (*Crx) 5-325 Mg Tablet PO Q4H PRN Pain Rated 1-3 Hydrocodone Bitart/Acetaminophen 1 tab 07/07/21 09:22 07/09/21 16:28 Hydrocodone/Acetaminophen (*Crx) 10-325 Mg Tablet PO 1 tab Q4H PRN Administration Pain Rated 4-6 Albuterol 2 puff 07/08/21 22:32 Albuterol Sulfate (*Sp) Aerosol 1 Puff INHALATION Q6HRT PRN Shortness Of Breath Piperacillin/Tazobactam/Dextrose 3.375 gm in 50 mls @ 100 mls/hr 07/07/21 09:00 07/09/21 16:55 Zosyn 3.375 Gm/D5w 50ml Pm IVPB Infused Q6H JENNI Infusion Vancomycin HCl 1,750 mg in 500 mls @ 250 mls/hr 07/09/21 22:00 Vancomycin 1,750 Mg/D5w 500 Ml IVPB Q12H JENNI Ketorolac Tromethamine 30 mg 07/07/21 09:21 07/08/21 21:50 Ketorolac 30 Mg/Ml Vial (*Bkc) IV PUSH 30 mg Q6H PRN Administration BREAKTHROUGH PAIN Morphine Sulfate 4 mg 07/07/21 04:09 07/07/21 10:47 Morphine Sulfate (*Crx) 4 Mg/Ml Inj IV PUSH 4 mg Q2H PRN Administration Pain Rated 7-10 Ondansetron HCl 4 mg 07/07/21 04:09 Ondansetron Inj 4 Mg/2 Ml Vial IV PUSH Q4H PRN Nausea Phenol 1 spray 07/08/21 22:05 Phenol/Sod Pheno [place] Pina (*Bkc) MUCOUS MEM PRN PRN Sore Throat Zolpidem Tartrate 5 mg 07/08/21 22:05 07/08/21 22:34 Zolpidem Tartrate (*Crx) 5 Mg Tablet PO 5 mg HS PRN Administration Insomnia Radiology Results: ITS Impressions Hand X-Ray 07/07/21 08:38 IMPRESSION: 1: NO ACUTE BONE OR JOINT ABNORMALITY IDENTIFIED. Chest X-Ray 07/08/21 22:43 IMPRESSION: 1. Minimal left basilar airspace opacity, consistent with atelectasis versus pneumonia. Labs Labs: Laboratory Results - last 24 hr 07/09/21 07/09/21 08:20 08:20 WBC 8.8 RBC 4.98 Hgb 14.1 Hct 43.3 MCV 86.9 MCH 28.3 MCHC 32.6 RDW 12.7 Plt Count 245 MPV 10.8 H Sodium 139 Potassium 3.8 Chloride 105 Carbon Dioxide 26 Anion Gap 8 BUN 4 L Creatinine 0.70 Estim Creat Clear Calc 177 Estimated GFR > 60 Glucose 90 Calcium 8.8 Total Bilirubin 0.5 AST 15 L ALT 12 Alkaline Phosphatase 52 Total Protein 6.0 L Albumin 3.7 Quality VTE Prophylaxis VTE prophylaxis: mechanical ordered
[2021-07-09] MEDS: ZOLPIDEM TARTRATE (*CRX) 5 MG TABLET PO (20:31)
[2021-07-09] MEDS: HYDROcodone/acetaminophen (*CRX) 5-325 MG TABLET 1 TAB PO (20:31)
[2021-07-09 22:00] VITALS: BP 116/69; PULSE 109; RESP 20; TEMP 37.3; O2SAT 98
[2021-07-10 05:03] VITALS: BP 116/57; PULSE 90; RESP 18; TEMP 35.9; O2SAT 97
--- NOTE | 2021-07-10 09:15 | PM.IMPN ---
Progress Note: A&P Assessment and Plan (1) Abscess of hand, right: Code(s): L02.511 - Cutaneous abscess of right hand Status: Acute Assessment and Plan: Zosyn plus vanc day 4 Blood culture NGTD Wound culture MRSA 07/07/2021 incision and drainage to the right hand subcutaneous abscess by Dr. Bermeo. Regular diet Up at devin elevation, p.r.n. ice, and p.r.n. pain medication Education of dressing and wound care Verduzco ID recommendations 1. Doxycycline for six weeks 2. Rifampin 300mg PO BID with Levaquin/Cipro 3. Bactrim 2 DS tabs BID (2) Right arm cellulitis: Code(s): L03.113 - Cellulitis of right upper limb Status: Acute Assessment and Plan: Ice packs to the area patient denies any history of MRSA, any previous surgeries or wounds that will not heal, and denies any other infections at this time. During the I and D, tanner pus was evacuated. The pus was cultured. No necrotic skin. Packing applied. On Zosyn and vancomycin Day 4 Urinalysis is ordered and remains on collect this time. Nursing staff will try again with the patient. Ordered strict I's and O's. Blood cultures NGTD CRP mild elevated 6.5, lactate and ESR normal. White blood count is 8.8 07/09/20 (3) Anxiety: Code(s): F41.9 - Anxiety disorder, unspecified Status: Acute Assessment and Plan: Patient is very anxious Seems to be trying to manipulate care Add Xanax 0.125 TID for comfort Time Spent With Patient Time with patient: Greater than 35 minutes Subjective Date/time seen: 07/10/21 0915 Interval history: Date/Time: 07/07/21 05:59 Narrative: This is a 21-year-old male transitioning/transgender likes to be called Aga and She as a pronoun. Presents to the emergency room with right hand base of the 5th finger abscess with flexion area of induration, redness and tenderness ,states that started 3 days ago, denies any fevers, rigors or chills, or nausea, or vomiting,diarrheal, abdominal pain, cough, sputum production, denies use of IV drugs. Patient received Zosyn and vanco in the emergency room. At the time of my visit patient was in distress due to unbearable pain that his rating at 10/10 in intensity. Preliminary workup was significant for x-ray of right hand with no subcutaneous gas, soft tissue swelling. C reactive protein was 6.5 WBC of 12,000. Date/time seen: 07/07/21 08:58 Elia was resting in bed on her back at the time of my exam. The OR nurses were preparing to take the patient down for an incision and drainage to the right hand subcutaneous abscess by Dr. Bermeo. There is evidence of pus and loculation noted at the 5th metatarsal on the right hand. But there is swelling noted to the 5th 4th and 3rd fingers and palm area the right hand. Sharon is in significant pain due to the swelling despite persistent elevation, p.r.n. ice, and p.r.n. pain medication. The patient denies any history of MRSA, any previous surgeries or wounds that will not heal, and denies any other infections at this time. During the I and D, tanner pus was evacuated. The pus was cultured. No necrotic skin. Packing applied. Nurse has reported that the patient is much more comfortable after this incision and drainage. Elia denies any blood or pain during urination or with bowel movements. She denies any chest pain or short of breath, any constipation or diarrhea at this time. On Zosyn and vancomycin. Urinalysis is ordered and remains on collect this time. Nursing staff will try again with the patient. Ordered strict I's and O's. Blood cultures remain pending. CRP mild elevated, lactate and ESR normal. White blood count mildly elevated at 12.4. Date/Time 07/08/21 1130 Patient is very tired today. S/he stated that they are not a morning person. Breakfast was still sitting on the bedside table, and she stated that she would get to it later. She then held her hand up and stated that
[2021-07-10] MEDS: HYDROcodone/acetaminophen (*CRX) 10-325 MG TABLET 1 TAB PO (10:16)
--- NOTE | 2021-07-10 11:49 | WPDPN ---
Progress Note: A&P Assessment and Plan (1) Abscess of hand, right: Code(s): L02.511 - Cutaneous abscess of right hand Status: Acute Additional Plan Continue IV antibiotics. Continue shower irrigations. Begin Mepilex Ag dressing to wound daily. Expect to switch to oral Bactrim at discharge. Time Spent With Patient Time with patient: less than 15 minutes Subjective Date/time seen: 07/10/21 11:49 Interval history: She was able to wash out wound in the shower yesterday. Has a friend who as been a nurse who is willing to help her with dressing changes. Exam Narrative: Wound margins appear viable but surfaces continue to show roland slimy exudate consistent with MRSA. No erythema. Full digital ROM. No eve ups. Objective Data Vital Signs Vital Signs: Vital Signs - 24 hr 07/09/21 14:00 07/09/21 22:00 07/10/21 05:03 Temperature 97 F L 99.1 F 96.6 F L Pulse Rate 88 109 H 90 Respiratory Rate 18 20 18 Blood Pressure 105/58 L 116/69 116/57 L Pulse Oximetry 100 98 97 Intake/Output Intake/Output: Intake & Output 07/07/21 07/08/21 07/09/21 07/10/21 23:59 23:59 23:59 23:59 Intake Total 3850 4290 2790 1686 Output Total 1000 200 Balance 2850 4090 2790 1686 Meds/Results Medications: Active Medications Generic Name Dose Route Start Last Admin Trade Name Freq PRN Reason Stop Dose Admin Hydrocodone Bitart/Acetaminophen 1 tab 07/07/21 09:22 07/09/21 20:31 Hydrocodone/Acetaminophen (*Crx) 5-325 Mg Tablet PO 1 tab Q4H PRN Administration Pain Rated 1-3 Hydrocodone Bitart/Acetaminophen 1 tab 07/07/21 09:22 07/10/21 10:16 Hydrocodone/Acetaminophen (*Crx) 10-325 Mg Tablet PO 1 tab Q4H PRN Administration Pain Rated 4-6 Albuterol 2 puff 07/08/21 22:32 Albuterol Sulfate (*Sp) Aerosol 1 Puff INHALATION Q6HRT PRN Shortness Of Breath Piperacillin/Tazobactam/Dextrose 3.375 gm in 50 mls @ 100 mls/hr 07/07/21 09:00 07/10/21 10:36 Zosyn 3.375 Gm/D5w 50ml Pm IVPB Infused Q6H JENNI Infusion Vancomycin HCl 1,750 mg in 500 mls @ 250 mls/hr 07/09/21 22:00 07/10/21 10:36 Vancomycin 1,750 Mg/D5w 500 Ml IVPB 250 mls/hr Q12H JENNI Administration Ketorolac Tromethamine 30 mg 07/07/21 09:21 07/08/21 21:50 Ketorolac 30 Mg/Ml Vial (*Bkc) IV PUSH 30 mg Q6H PRN Administration BREAKTHROUGH PAIN Morphine Sulfate 4 mg 07/07/21 04:09 07/07/21 10:47 Morphine Sulfate (*Crx) 4 Mg/Ml Inj IV PUSH 4 mg Q2H PRN Administration Pain Rated 7-10 Ondansetron HCl 4 mg 07/07/21 04:09 Ondansetron Inj 4 Mg/2 Ml Vial IV PUSH Q4H PRN Nausea Phenol 1 spray 07/08/21 22:05 Phenol/Sod Pheno [place] Pina (*Bkc) MUCOUS MEM PRN PRN Sore Throat Zolpidem Tartrate 5 mg 07/08/21 22:05 07/09/21 20:31 Zolpidem Tartrate (*Crx) 5 Mg Tablet PO 5 mg HS PRN Administration Insomnia Radiology Results: ITS Impressions Hand X-Ray 07/07/21 08:38 IMPRESSION: 1: NO ACUTE BONE OR JOINT ABNORMALITY IDENTIFIED. Chest X-Ray 07/08/21 22:43 IMPRESSION: 1. Minimal left basilar airspace opacity, consistent with atelectasis versus pneumonia. Labs Labs: Clindamycin resistant MRSA sensitive to Sulfa. Quality VTE Prophylaxis VTE prophylaxis: mechanical ordered
[2021-07-10 14:00] VITALS: BP 126/62; PULSE 76; RESP 18; TEMP 36.2; O2SAT 97
[2021-07-10] MEDS: HYDROcodone/acetaminophen (*CRX) 5-325 MG TABLET 1 TAB PO (21:15)
[2021-07-10] MEDS: ZOLPIDEM TARTRATE (*CRX) 5 MG TABLET PO (21:15)
[2021-07-10 22:00] VITALS: BP 132/77; PULSE 104; RESP 20; TEMP 36.1; O2SAT 98
[2021-07-11] MEDS: HYDROcodone/acetaminophen (*CRX) 10-325 MG TABLET 1 TAB PO ×2 (03:08→11:43)
[2021-07-11 06:00] VITALS: BP 114/66; PULSE 80; RESP 18; TEMP 36.2; O2SAT 98
[2021-07-11 09:23] LABS: Estimated CRCL calculation 116 ml/min; Estimated Glomerular Filt Rate > 60
[2021-07-11 10:18] LABS: Vancomycin Trough 14.2 ug/mL (10.0-20.0)
--- NOTE | 2021-07-11 10:45 | PM.DS ---
DS: Admitting Diagnosis Discharge Date DOS 07/11/21 1045 Admitting Diagnosis cutaneous abscess of the right hand with MRSA DS: Discharge Diagnosis Discharge Diagnosis (1) Abscess of hand, right: Code(s): L02.511 - Cutaneous abscess of right hand Status: Acute Assessment and Plan: Zosyn plus vanc day 4 Blood culture NGTD Wound culture MRSA 07/07/2021 incision and drainage to the right hand subcutaneous abscess by Dr. Bermeo. Regular diet Up at devin elevation, p.r.n. ice, and p.r.n. pain medication Education of dressing and wound care Verduz[employer] ID recommendations 1. Doxycycline for six weeks 2. Rifampin 300mg PO BID with Levaquin/Cipro 3. Bactrim 2 DS tabs BID (2) Right arm cellulitis: Code(s): L03.113 - Cellulitis of right upper limb Status: Acute Assessment and Plan: Ice packs to the area patient denies any history of MRSA, any previous surgeries or wounds that will not heal, and denies any other infections at this time. During the I and D, tanner pus was evacuated. The pus was cultured. No necrotic skin. Packing applied. On Zosyn and vancomycin Day 4 Urinalysis is ordered and remains on collect this time. Nursing staff will try again with the patient. Ordered strict I's and O's. Blood cultures NGTD CRP mild elevated 6.5, lactate and ESR normal. White blood count is 8.8 07/09/20 (3) Anxiety: Code(s): F41.9 - Anxiety disorder, unspecified Status: Acute Assessment and Plan: Patient is very anxious Seems to be trying to manipulate care Add Xanax 0.125 TID for comfort DS: Summary Hospital Course Hospital Course: patient is a 21-year-old with a past medical history of transitioning/transgender who presented the emergency room with redness, induration, tenderness, pain to the right hand. Patient denied trauma or IV drug use. Patient stated she has been to [facility] for evaluation however was discharged on Bactrim. Patient presented to the ED here with no results and was seen by Dr. Bermeo who took to the patient to the OR on 07/07/2021 for incision and drainage of the subcutaneous abscess. Culture showed the patient had MRSA in his hand. Patient was given IV Zosyn and IV vancomycin for 5 days. Patient has been educated about wound care, dressing changes, cleaning. Patient is ready to go and has been very anxious about leaving. Patient stated that it feels like needles are going through her back in the room is hot. to talk to Dax SANDOVAL who recommends doxycycline for 6 weeks. Susceptibility report shows patient is susceptible to tetracycline so doxycycline should be sufficient. Patient denies chest pain, shortness of breath, nausea, vomiting, diarrhea, constipation, weakness, fatigue. Talked to Dr. Bermeo who is wanting patient to go on Doxy but for only 3 weeks, and he will see the patient in the office for follow up in one week Status at Discharge Functional status at discharge: independent ambulation Overall status at discharge: patient is progressing back to baseline Time Spent with Patient Time attestation: Total time spent providing and/or coordinating discharge services: 42 minutes Time spent: Greater than 30 minutes Specific discharge activities: Diagnostic testing, chart review, developing a treatment plan, education, care coordination documentation, physical exam, result review Exam Const: General: cooperative, comfortable, no acute distress, well developed, alert and anxious Nutritional Appearance: average body habitus Orientation/consciousness: oriented to person, oriented to place, oriented to time and patient oriented x3 HENMT: Head: normal to inspection, normocephalic and atraumatic Ears: hearing grossly normal bilaterally General nose exam: Normal external nose present Face and sinus: normal facial exam Mouth: Yes Normal oral and palatal mucosa present Eyes: General: appear
[2021-07-11 14:00] VITALS: BP 124/64; PULSE 83; RESP 14; TEMP 37; O2SAT 99
--- NOTE | 2021-07-11 15:47 | WPDPN ---
Progress Note: A&P Assessment and Plan (1) Abscess of hand, right: Code(s): L02.511 - Cutaneous abscess of right hand Status: Acute Assessment and Plan: Okay for discharge from my standpoint. The patient should be discharged with doxycycline twice a day for 3 weeks. He will need the Mepilex Ag sponge or rope plus some dry gauze wrap for his care at home. This will be done daily. Patient should continue normal washing with irrigation of the wound bed in the shower. Follow up with Dr. Bermeo in approximately 1 week. He should call our office for an appointment Time Spent With Patient Time with patient: less than 15 minutes Subjective Date/time seen: 07/11/21 15:47 Postop day for I and D of deep MRSA abscess right ulnar hand. Patient is reporting is getting frustrated being in the hospital. Wound was dressed today I removed the Mepilex sponge that was in the wound. This area all seemed better. Most of it is beginning to improve and show some very early granulation tissue. The subcutaneous webspace show signs of a breakdown. That should not worsen the overall condition if it were to slough but would allow for the drainage and easier access for additional Mepilex Ag dressing. Range of motion as normal there is no erythema no foul drainage. Okay for discharge from my standpoint. The patient seems to be comfortable with that idea and the ongoing care that he would need to provide for himself. Objective Data Vital Signs Vital Signs: Vital Signs - 24 hr 07/10/21 22:00 07/11/21 06:00 07/11/21 14:00 Temperature 96.9 F L 97.1 F L 98.6 F Pulse Rate 104 H 80 83 Respiratory Rate 20 18 14 Blood Pressure 132/77 114/66 124/64 Pulse Oximetry 98 98 99 Intake/Output Intake/Output: Intake & Output 07/08/21 07/09/21 07/10/21 07/11/21 23:59 23:59 23:59 23:59 Intake Total 4290 2790 3386 4037 Output Total 200 Balance 4090 2790 3386 4037 Meds/Results Medications: Active Medications Generic Name Dose Route Start Last Admin Trade Name Freq PRN Reason Stop Dose Admin Hydrocodone Bitart/Acetaminophen 1 tab 07/07/21 09:22 07/10/21 21:15 Hydrocodone/Acetaminophen (*Crx) 5-325 Mg Tablet PO 1 tab Q4H PRN Administration Pain Rated 1-3 Hydrocodone Bitart/Acetaminophen 1 tab 07/07/21 09:22 07/11/21 11:43 Hydrocodone/Acetaminophen (*Crx) 10-325 Mg Tablet PO 1 tab Q4H PRN Administration Pain Rated 4-6 Albuterol 2 puff 07/08/21 22:32 Albuterol Sulfate (*Sp) Aerosol 1 Puff INHALATION Q6HRT PRN Shortness Of Breath Alprazolam 0.125 mg 07/10/21 13:33 Alprazolam (*Crx) 0.125 Mg Tablet PO TID PRN Anxiety Piperacillin/Tazobactam/Dextrose 3.375 gm in 50 mls @ 100 mls/hr 07/07/21 09:00 07/11/21 14:47 Zosyn 3.375 Gm/D5w 50ml Pm IVPB 100 mls/hr Q6H JENNI Administration Vancomycin HCl 1,750 mg in 500 mls @ 250 mls/hr 07/09/21 22:00 07/11/21 12:31 Vancomycin 1,750 Mg/D5w 500 Ml IVPB Infused Q12H JENNI Infusion Ketorolac Tromethamine 30 mg 07/07/21 09:21 07/08/21 21:50 Ketorolac 30 Mg/Ml Vial (*Bkc) IV PUSH 30 mg Q6H PRN Administration BREAKTHROUGH PAIN Morphine Sulfate 4 mg 07/07/21 04:09 07/07/21 10:47 Morphine Sulfate (*Crx) 4 Mg/Ml Inj IV PUSH 4 mg Q2H PRN Administration Pain Rated 7-10 Ondansetron HCl 4 mg 07/07/21 04:09 Ondansetron Inj 4 Mg/2 Ml Vial IV PUSH Q4H PRN Nausea Phenol 1 spray 07/08/21 22:05 Phenol/Sod Pheno [place] Pina (*Bkc) MUCOUS MEM PRN PRN Sore Throat Silver 1 each 07/10/21 21:00 07/10/21 22:09 Silver Foam Band (Mepilex Ag 4x4) Bandage TOPICAL 1 each HS JENNI Administration Zolpidem Tartrate 5 mg 07/08/21 22:05 07/10/21 21:15 Zolpidem Tartrate (*Crx) 5 Mg Tablet PO 5 mg HS PRN Administration Insomnia Radiology Results: ITS Impressions Hand X-Ray 07/07/21 08:38 IMPRESSION: 1: NO ACUTE BONE OR JOINT ABNORMALITY IDENTIFIED.
[2021-07-11 15:59] LABS: Alanine Aminotransferase 17 U/L (4-50); Albumin Level 3.5 g/dL (3.5-5.1); Alkaline Phosphatase 54 U/L (38-126); Anion Gap 10 mmol/L (8-16); Aspartate Amino Transferase 18 U/L (17-59); Bilirubin,Total 0.4 mg/dL (0.2-1.3); Blood Urea Nitrogen 8 mg/dL (9-20); Calcium 9.3 mg/dL (8.4-10.2); Carbon Dioxide 26 mmol/L (22-30); Chloride 103 mmol/L (98-107); Estimated CRCL calculation 107 ml/min; Estimated Glomerular Filt Rate > 60; Glucose 94 mg/dL (65-110); Potassium 4.1 mmol/L (3.4-5.0); Sodium 139 mmol/L (137-145)
== END 2021-07-11 17:10 | disposition home or self-care (01) | DRG 364 ==
LOC: ANHED 04:09 → ANH3MEDSUR 04:31
PROVIDERS: Nurse Practitioner; Plastic Surgery; Admitting Provider Internal Medicine; Emergency Provider Emergency Medicine; Visit Provider Nurse Practitioner
PROC: 0J9J0ZZ Drainage of Right Hand Subcutaneous Tissue and Fascia, Open Approach (ICD-10-PCS; principal; 2021-07-07 13:30)
DX: L02.511 Cutaneous abscess of right hand (principal); L03.113 Cellulitis of right upper limb; B95.62 Methicillin resistant Staphylococcus aureus infection as the cause of diseases classified elsewhere; F41.9 Anxiety disorder, unspecified; F17.210 Nicotine dependence, cigarettes, uncomplicated
CPT/HCPCS: 36415; 71045; 73130; 80053; 80202; 81003; 82565; 83605; 85025; 85027; 85652; 86140; 87040; 87070; 87075; 87147; 87184; 87186; 87205; 96361; 96365; 96366; 96367; 96375; 96376; 99285; A9270; G0378; G0379; J0330; J1170; J1885; J2250; J2270; J2405; J2543; J2704; J3370; J7030; J7120